=== PATIENT | male | born 1950 | race Caucasian/White ===

== ENCOUNTER → 2017-04-19 | Outpatient (CLI) | payer MEDICARE, OTHER ==
[~2017-04-19] MED LIST: ALLOPURINOL100 MG PO; AMARYL4 M1 PO; ASPIR 8181 MG PO; BRILINTA90 MG; COZAAR25 MG PO; COZAAR50 MG PO; CPAP INH; DOXYCYCLINE HY100 MG PO; FISH OIL 1,0001 EAC4 PO; FISH OIL 1,2001 EACH PO; FLOMAX0.4 MG PO; HUMALOG100 UNIT/1 SUB-Q; IMDUR60 MG PO; ISOSORBIDE MONO60 MG PO; K-TAB 10MEQ10 MEQ PO; KEPPRA XR500 MG PO; LANTUS100 UNIT/1 SUB-Q; LASIX40 M1 PO; LOPRESSOR25 MG PO; MAGNESIUM OXID400 MG PO; MUCOMYST 20200 MG/M1 PO; NIACIN500 M1 PO; NITRO-BID60 GM TOP; NITROBID TOP; NITROGLYCERIN0.4 MG SL; NITROGLYCERIN4.9 GM SL; NORVASC2.5 MG PO; OXYGEN INH; PAIN RELIEF650 MG PO; PLAVIX75 MG PO; PRALUENT P75 MG/1 ML SUB-Q; PRILOSEC OTC20 MG PO; PROAIR HFA8.5 GM INH; RANEXA ER500 MG PO; RANEXA1000 MG PO; SULFAMETHOXAZO1 EAC1 PO; TOUJEO SOL300 UNIT/1 SUB-Q; TRULICITY0.75 MG/0. SUB-Q; ULTRAM50 MG PO; VALIUM5 MG PO; VASOTEC2.5 MG PO; ZETIA10 MG PO
== END | disposition disaster alternative care site (69) ==
LOC: GRAD 15:23
DX: M19.011 Primary osteoarthritis, right shoulder (principal)